=== PATIENT | male | born 2000 | race Two or more races ===

== ENCOUNTER → 2024-03-04 | Outpatient (CLI) | payer BC, SELFPAY ==
--- NOTE | 2024-03-04 | XR_ITS ---
Examination: Cervical spine 3 views Technique one AP lateral coned AP odontoid cervical spine 3 views Exam date and time: 10/03/2023 1014 hours INDICATIONS: Neck pain beginning one year ago. FINDINGS: Satisfactory alignment cervical vertebral bodies. No cervical fracture. Intact odontoid. No cervical disc narrowing IMPRESSION: No cervical fracture or arthritic change
--- NOTE | 2024-03-04 09:49 | XR_ITS ---
Examination: Shoulder,left, 3 views Technique: Shoulder AP internal rotation, AP external rotation, Y view shoulder, 3 views Exam date and time :March 04, 2024 1013 hours INDICATIONS: Short one year. FINDINGS: No fracture or dislocation No arthritic change No calcific tendinitis IMPRESSION: Negative for osseous abnormality
== END | disposition home or self-care (01) ==
PROVIDERS: PCP Internal Medicine; Referring Provider Nurse Practitioner Family; Visit Provider Nurse Practitioner Family
DX: M25.512 Pain in left shoulder (principal); M54.2 Cervicalgia
CPT/HCPCS: 72040; 73030